=== PATIENT | male | born 1965 | race Caucasian/White ===

== ENCOUNTER 2021-02-27 06:01 | Emergency (ER) | payer MEDICAID ==
--- NOTE | 2021-02-27 06:41 | NUR ---
CALLED TO TRIAGE X 3, NO ANSWER. [facility]BS
== END 2021-02-27 06:05 | disposition left against medical advice (07) ==
LOC: MED 06:01
DX: Z53.21 Procedure and treatment not carried out due to patient leaving prior to being seen by health care provider (principal)